=== PATIENT | male | born 1940 | race Caucasian/White ===

== ENCOUNTER → 2016-08-23 | Outpatient (CLI) | payer MEDICARE, OTHER ==
[~2016-08-23] MED LIST: ALBUTEROL0.83 MG/ML IH; ALEVE; AMARYL; AMARYL2 MG PO; AMARYL4 MG PO; AMOXICILLIN 50500 MG PO; AMOXICILLIN 8751 TAB PO; AMOXICILLIN/CLA1 TA1 PO; ASPIRIN E.C. 8181 MG PO; ATENOLOL25 MG PO; BACTRIM DS 8001 TAB PO; BENADRYL25 M2 PO; BENAZEPRIL; BENAZEPRIL20 MG PO; CARDENE 20MG CA20 MG PO; CARDI-OMEGA1000 MG PO; CEFTIN500 MG PO; CEPHALEXIN500 M1 PO; CLEOCIN HCL300 MG PO; COLACE 100100 MG/CAP PO; COUMADIN; COUMADIN 1MG1 MG/TAB PO; COUMADIN 4MG4 MG/TAB PO; COUMADIN4 MG PO; CRESTOR20 MG PO; DICLOXACILLIN250 MG PO; DIGOXIN0.25 MG PO; DILTIAZEM; DOCUSATE SODIU100 M2 PO; DOXYCYCLINE 10100 MG PO; ELIMITE TP; FISH OIL 1000MG1 CAP PO; FLEXERIL 1010 MG/TAB PO; FLOVENT 110MCG7.9 GM IH; FORTAMET1000 MG PO; FUROSEMIDE; FUROSEMIDE40 MG PO; GLUCOPHAGE1000 MG PO; GLUCOSAMINE 1000 PO; GLUCOSAMINE SU500 M1 PO; JANTOVEN4 MG PO; LASIX 40MG TABL40 MG PO; LEVAQUIN 5500 MG/TA1 PO; LEVAQUIN 750MG750 M1 PO; LEVAQUIN 750MG750 MG PO; LOPID 600M600 MG/TAB PO; LOPID600 MG PO; LORTAB 5/500 501 TAB PO; LOTENSIN10 MG PO; MAG-OX 400400 MG/TAB PO; MAREPA1200 MG PO; MELOXICAM15 MG PO; METFORMIN HCL1000 MG PO; METFORMIN1000 MG PO; METOLAZONE5 MG PO; MOTRIN 200200 MG/TAB PO; MULTI VITAMINS1 TAB PO; NEW ENERGY1 CAP PO; NORCO 325 MG-51 TAB PO; NORCO 325 MG-7.1 TAB PO; PERCOCET 325 MG1 TA2 PO; PHENERGAN W/CO120 M1 PO; PREDNISONE20 MG PO; PRILOSEC 20MG20 MG PO; PROAIR HFA0.09 MG/AC IH; PYRIDIUM 100MG100 MG PO; SUPER EPA W/BO400 MG PO; TEKTURNA; TENORMIN 2525 MG/TAB PO; TYLENOL 500MG500 MG PO; ULTRAM 50MG TAB50 MG PO; UNABLE; VENTOLIN0.09 MG IH; WARFARIN SODIUM1 MG PO; WARFARIN2 MG PO; WARFARIN4 MG PO; ZESTRIL 20MG TA20 MG PO; ZITHROMAX 250M250 MG PO; ZYLOPRIM 300MG300 MG PO; [UNRECOGNIZED DRUG - OTHER]
== END ==
LOC: WCC 09:30
DX: I87.8 Other specified disorders of veins (principal); E11.621 Type 2 diabetes mellitus with foot ulcer; L97.519 Non-pressure chronic ulcer of other part of right foot with unspecified severity
CPT/HCPCS: G0463

== ENCOUNTER 2016-09-08 13:24 | Emergency (ER) | payer MEDICARE, OTHER ==
[~2016-09-08] VITALS: Ht 188 cm; Wt 120.5 kg
[~2016-09-08 13:24] MED LIST changes: -BENADRYL25 M2 PO; -CRESTOR20 MG PO; -ELIMITE TP; -FLOVENT 110MCG7.9 GM IH; -PROAIR HFA0.09 MG/AC IH; -ZESTRIL 20MG TA20 MG PO
[2016-09-08 14:24] VITALS: TEMP 99.2
[2016-09-08] MEDS ORDERED: PROAIR HFA0.09 MG/AC IH (15:09)
[2016-09-08] MEDS ORDERED: LEVAQUIN 5500 MG/TA1 PO (15:09)
[2016-09-08 15:33] VITALS: BP 143/68; PULSE 89
== END 2016-09-08 15:34 | disposition home or self-care (01) ==
LOC: COL.ER 13:24
DX: J18.9 Pneumonia, unspecified organism (principal); E11.9 Type 2 diabetes mellitus without complications; Z87.891 Personal history of nicotine dependence; J45.909 Unspecified asthma, uncomplicated; Z79.84 Long term (current) use of oral hypoglycemic drugs; I48.91 Unspecified atrial fibrillation; Z79.01 Long term (current) use of anticoagulants

== ENCOUNTER → 2016-10-02 | Outpatient (CLI) | payer MEDICARE, OTHER ==
[~2016-10-02] MED LIST changes: +BENADRYL25 M2 PO; +CRESTOR20 MG PO; +ELIMITE TP; +FLOVENT 110MCG7.9 GM IH; +PROAIR HFA0.09 MG/AC IH; +ZESTRIL 20MG TA20 MG PO
== END ==
LOC: WCC 09-06 08:13
DX: E11.621 Type 2 diabetes mellitus with foot ulcer (principal); L97.519 Non-pressure chronic ulcer of other part of right foot with unspecified severity; I87.8 Other specified disorders of veins

== ENCOUNTER → 2016-10-10 | Outpatient (CLI) | payer MEDICARE, OTHER | LOC: COL.PUL 10-08 10:50 | DX: J45.40 Moderate persistent asthma, uncomplicated (principal) ==

== ENCOUNTER 2016-10-30 16:18 | Emergency (ER) | payer MEDICARE, OTHER ==
[~2016-10-30] VITALS: Ht 190.5 cm; Wt 127.3 kg
[~2016-10-30 16:18] MED LIST changes: -BENADRYL25 M2 PO; -CRESTOR20 MG PO; -ELIMITE TP; -FLOVENT 110MCG7.9 GM IH; -ZESTRIL 20MG TA20 MG PO
[2016-10-30 16:19] VITALS: BP 133/93; PULSE 101; TEMP 98.8
[2016-10-30] MEDS ORDERED: ELIMITE TP (17:35)
[2016-10-31] MEDS ORDERED: DOXYCYCLINE 10100 MG PO (17:39)
== END 2016-10-30 18:17 | disposition home or self-care (01) ==
LOC: COL.ER 16:18
DX: B86 Scabies (principal); E11.9 Type 2 diabetes mellitus without complications; J45.909 Unspecified asthma, uncomplicated

== ENCOUNTER 2016-10-31 16:59 | Emergency (ER) | payer MEDICARE, OTHER ==
[~2016-10-31] VITALS: Ht 190.5 cm; Wt 127.3 kg
[~2016-10-31 16:59] MED LIST changes: +ELIMITE TP
[2016-10-31 17:01] VITALS: TEMP 100
[2016-10-31] MEDS ORDERED: DOXYCYCLINE 10100 MG PO (17:39)
[2016-10-31 17:48] VITALS: BP 131/86; PULSE 112
== END 2016-10-31 17:48 | disposition home or self-care (01) ==
LOC: COL.ER 16:59
DX: H60.11 Cellulitis of right external ear (principal); T78.40XA Allergy, unspecified, initial encounter; S00.461A Insect bite (nonvenomous) of right ear, initial encounter; W57.XXXA Bitten or stung by nonvenomous insect and other nonvenomous arthropods, initial encounter; E11.9 Type 2 diabetes mellitus without complications; I10 Essential (primary) hypertension; Z79.01 Long term (current) use of anticoagulants; Z79.84 Long term (current) use of oral hypoglycemic drugs; I48.91 Unspecified atrial fibrillation

== ENCOUNTER → 2016-11-13 | Outpatient (CLI) | payer MEDICARE, OTHER ==
[~2016-11-13] MED LIST changes: +BENADRYL25 M2 PO; +CRESTOR20 MG PO; +FLOVENT 110MCG7.9 GM IH; +ZESTRIL 20MG TA20 MG PO
== END ==
LOC: WCC
DX: E11.621 Type 2 diabetes mellitus with foot ulcer (principal); L97.519 Non-pressure chronic ulcer of other part of right foot with unspecified severity

== ENCOUNTER 2016-12-02 09:13 | Inpatient (IN) | payer MEDICARE ==
[2016-12-02] VITALS (567 sets, daily range): BP systolic 100–148; BP diastolic 50–93; PULSE 92–161; TEMP 96.9–103.5; O2SAT 75–99
[~2016-12-02] VITALS: Ht 188 cm; Wt 119.7 kg
[~2016-12-02 09:13] MED LIST changes: -BENADRYL25 M2 PO; -CRESTOR20 MG PO; -FLOVENT 110MCG7.9 GM IH; -ZESTRIL 20MG TA20 MG PO
[2016-12-02 10:04] LABS: ARTERIAL BLD GAS O2 SATURATION 87.8 % (92-100); ARTERIAL BLD GAS TCO2 CT 22.5; ARTERIAL BLOOD GAS BASE EXCESS -3.3 (-2-2); ARTERIAL BLOOD GAS HCO3 21.4 meq/L (22-26); ARTERIAL BLOOD GAS PHT 7.38 C (7.35-7.45); ARTERIAL BLOOD GAS PO2 50.8 mmHg (80-100); ARTERIAL BLOOD GAS PO2T 50.8 (80-100); ARTERIAL BLOOD GAS pH 7.38 (7.35-7.45); ATS? YES; OXYHEMOGLOBIN 86.5 %
[2016-12-02 11:05] LABS: PARTIAL THROMBOPLASTIN TIME 93.9 SECONDS (26.0-37.0)
[2016-12-02 11:14] LABS: HEMATOCRIT 42.3 % (42.0-52.0); HEMOGLOBIN 14.4 g/dl (13.5-18.0); MEAN CELL VOLUME 92 fl (80.0-100.0); MEAN CORPUSCULAR HEMOGLOBIN 31 pg (27.0-31.0); MEAN CORPUSCULAR HGB CONC 34 g/dl (33.0-37.0); MEAN PLATELET VOLUME 9.9 fl (7.4-10.4); PLATELET COUNT 187 K/mm3 (130-400); RED BLOOD COUNT 4.58 M/mm3 (4.20-5.60); REDCELL DISTRIBUTION WIDTH-CV 14.2 % (11.5-14.5); WHITE BLOOD COUNT 16.1 K/mm3 (4.8-10.8)
[2016-12-02 11:18] LABS: ADJUSTED CALCIUM 10.5 mg/dL (8.4-10.2); ALBUMIN 4.1 gm/dL (3.5-5.0); BILIRUBIN,TOTAL 1.4 mg/dL (0.0-1.0); CALCIUM 10.6 mg/dL (8.4-10.2); CREATININE, serum 1.13 mg/dL (0.66-1.25); MAGNESIUM 2.3 mg/dL (1.6-2.3); POTASSIUM 4.2 mmol/L (3.4-5.0); TOTAL PROTEIN 7.4 gm/dL (6.4-8.2)
[2016-12-02 11:20] LABS: ADD PATHOLOGY DIFF REVIEW NO
[2016-12-02 11:30] LABS: TROPONIN-I 0.114 ng/mL (0.000-0.034)
[2016-12-02 11:47] LABS: INR 14.6 (0.8-3.0); PROTHROMBIN TIME 175.8 SECONDS (9.7-12.8)
[2016-12-02 11:50] LABS: C-REACTIVE PROTEIN 38.1 mg/dL (0.0-0.9)
[2016-12-02 11:56] LABS: ANISOCYTOSIS 1+; BAND 42 % (0-10); NEUTROPHILS 48 % (42.0-75.2); PLATELET ESTIMATE NORMAL (NORMAL); TOTAL CELLS COUNTED 100
[2016-12-02 13:29] LABS: PH 5 (5-8); SQUAMOUS EPITHELIAL 0-2 /hpf; URINE APPEARANCE Hazy; URINE BACTERIA None Seen /hpf; URINE BILIRUBIN Negative (NEGATIVE); URINE BLOOD 3+ (NEGATIVE); URINE COLOR Yellow; URINE GLUCOSE 3+ (NEGATIVE); URINE KETONE Trace (NEGATIVE); URINE UROBILINOGEN Negative (NEGATIVE)
[2016-12-02] MEDS ORDERED: BENADRYL25 M2 PO (15:51)
[2016-12-02] MEDS ORDERED: FLOVENT 110MCG7.9 GM IH (15:52)
[2016-12-02] MEDS ORDERED: GLUCOSAMINE 1000 PO (15:52)
[2016-12-02] MEDS ORDERED: ZESTRIL 20MG TA20 MG PO (15:53)
[2016-12-02] MEDS ORDERED: CRESTOR20 MG PO (15:54)
[2016-12-02 17:48] LABS: ARTERIAL BLD GAS O2 SATURATION 95.1 % (92-100); ARTERIAL BLD GAS TCO2 CT 26.1; ARTERIAL BLOOD GAS BASE EXCESS 0.4 (-2-2); ARTERIAL BLOOD GAS HCO3 24.9 meq/L (22-26); ARTERIAL BLOOD GAS PHT 7.42 C (7.35-7.45); ARTERIAL BLOOD GAS PO2 73.1 mmHg (80-100); ARTERIAL BLOOD GAS PO2T 73.1 (80-100); ARTERIAL BLOOD GAS pH 7.42 (7.35-7.45); OXYHEMOGLOBIN 94.1 %
[2016-12-02 17:50] LABS: ALLEN TEST YES; ALLENS TEST RESULT PASS; ATS? YES
[2016-12-02 18:58] LABS: INR 17.1 (0.8-3.0); PROTHROMBIN TIME 207.4 SECONDS (9.7-12.8)
[2016-12-03] VITALS (1371 sets, daily range): BP systolic 95–134; BP diastolic 64–96; PULSE 90–121; TEMP 97.5–98.3; O2SAT 77–100
[2016-12-03 00:50] LABS: VENOUS BLOOD GAS BE 1.2 (-4-4); VENOUS BLOOD GAS SAO2 68.7 % (60-80)
[2016-12-03 00:51] LABS: VENOUS BLOOD GAS SITE CENTRAL LINE
[2016-12-03 01:07] LABS: INR 2.8 (0.8-3.0); PROTHROMBIN TIME 32.2 SECONDS (9.7-12.8)
[2016-12-03 02:37] LABS: ARTERIAL BLD GAS O2 SATURATION 97.1 % (92-100); ARTERIAL BLD GAS TCO2 CT 27.2; ARTERIAL BLOOD GAS BASE EXCESS 2.1 (-2-2); ARTERIAL BLOOD GAS PHT 7.45 C (7.35-7.45); ARTERIAL BLOOD GAS PO2 89.2 mmHg (80-100); ARTERIAL BLOOD GAS PO2T 89.2 (80-100); ARTERIAL BLOOD GAS pH 7.45 (7.35-7.45); OXYHEMOGLOBIN 96.3 %
[2016-12-03 02:38] LABS: ALLEN TEST YES; ALLENS TEST RESULT PASS; ATS? YES
[2016-12-03 04:30] LABS: VENOUS BLOOD GAS BE 1.2 (-4-4); VENOUS BLOOD GAS SAO2 64.4 % (60-80)
[2016-12-03 04:35] LABS: VENOUS BLOOD GAS SITE CENTRAL LINE
[2016-12-03 04:44] LABS: MEAN CELL VOLUME 92 fl (80.0-100.0); MEAN CORPUSCULAR HGB CONC 34 g/dl (33.0-37.0); MEAN PLATELET VOLUME 10.1 fl (7.4-10.4); PLATELET COUNT 173 K/mm3 (130-400); RED BLOOD COUNT 3.67 M/mm3 (4.20-5.60); REDCELL DISTRIBUTION WIDTH-CV 14.5 % (11.5-14.5); WHITE BLOOD COUNT 10.5 K/mm3 (4.8-10.8)
[2016-12-03 04:46] LABS: ADD PATHOLOGY DIFF REVIEW NO; HEMATOCRIT 33.9 % (42.0-52.0); HEMOGLOBIN 11.4 g/dl (13.5-18.0); MEAN CORPUSCULAR HEMOGLOBIN 31 pg (27.0-31.0)
[2016-12-03 04:49] LABS: INR 1.9 (0.8-3.0)
[2016-12-03 04:58] LABS: ADJUSTED CALCIUM 10.4 mg/dL (8.4-10.2); ALBUMIN 3.3 gm/dL (3.5-5.0); BILIRUBIN,TOTAL 1.4 mg/dL (0.0-1.0); CALCIUM 9.8 mg/dL (8.4-10.2); CREATININE, serum 1.36 mg/dL (0.66-1.25); POTASSIUM 3.5 mmol/L (3.4-5.0); TOTAL PROTEIN 6.4 gm/dL (6.4-8.2)
[2016-12-03 05:40] LABS: BAND 29 % (0-10); NEUTROPHILS 58 % (42.0-75.2); TOTAL CELLS COUNTED 100
[2016-12-04] VITALS (1276 sets, daily range): BP systolic 103–122; BP diastolic 64–86; PULSE 80–105; TEMP 97–98; O2SAT 83–100
[2016-12-04 05:48] LABS: BASO % 0.2 % (0.0-2.0); EOS % 0.1 % (0-4.0); GRAN # 10.6 (1.4-6.5); GRAN % 84.2 % (42.2-75.2); LYMPH # 0.7 (1.2-3.4); LYMPH % 5.5 % (20.0-51.0); MEAN CELL VOLUME 95 fl (80.0-100.0); MEAN CORPUSCULAR HGB CONC 32 g/dl (33.0-37.0); MEAN PLATELET VOLUME 10.1 fl (7.4-10.4); MONO # 1.2 (0.1-0.6); MONO % 9.4 % (1.7-9.3); PLATELET COUNT 174 K/mm3 (130-400); RED BLOOD COUNT 3.57 M/mm3 (4.20-5.60); REDCELL DISTRIBUTION WIDTH-CV 14.7 % (11.5-14.5); WHITE BLOOD COUNT 12.5 K/mm3 (4.8-10.8)
[2016-12-04 05:57] LABS: ADJUSTED CALCIUM 10.5 mg/dL (8.4-10.2); ALBUMIN 2.8 gm/dL (3.5-5.0); BILIRUBIN,TOTAL 0.9 mg/dL (0.0-1.0); CALCIUM 9.5 mg/dL (8.4-10.2); CREATININE, serum 1.57 mg/dL (0.66-1.25); POTASSIUM 3.6 mmol/L (3.4-5.0); TOTAL PROTEIN 5.9 gm/dL (6.4-8.2)
[2016-12-04 06:03] LABS: HEMATOCRIT 33.9 % (42.0-52.0); HEMOGLOBIN 10.9 g/dl (13.5-18.0); MEAN CORPUSCULAR HEMOGLOBIN 31 pg (27.0-31.0)
[2016-12-04 06:09] LABS: INR 1.2 (0.8-3.0); PROTHROMBIN TIME 13.9 SECONDS (9.7-12.8)
[2016-12-05] VITALS (198 sets, daily range): BP systolic 111–132; BP diastolic 61–82; PULSE 67–113; TEMP 97.3–98.7; O2SAT 69–98
[2016-12-05 06:50] LABS: INR 1.3 (0.8-3.0); PROTHROMBIN TIME 14.3 SECONDS (9.7-12.8)
[2016-12-05 06:55] LABS: ADJUSTED CALCIUM 10.2 mg/dL (8.4-10.2); ALBUMIN 2.7 gm/dL (3.5-5.0); BILIRUBIN,TOTAL 0.9 mg/dL (0.0-1.0); CALCIUM 9.2 mg/dL (8.4-10.2); CREATININE, serum 2.13 mg/dL (0.66-1.25); POTASSIUM 3.8 mmol/L (3.4-5.0); TOTAL PROTEIN 5.7 gm/dL (6.4-8.2)
[2016-12-05 07:04] LABS: VANCOMYCIN TROUGH 27.23 ug/mL (7.00-20.00)
[2016-12-05 07:05] LABS: MEAN CELL VOLUME 95 fl (80.0-100.0); MEAN CORPUSCULAR HGB CONC 32 g/dl (33.0-37.0); MEAN PLATELET VOLUME 10.8 fl (7.4-10.4); PLATELET COUNT 186 K/mm3 (130-400); RED BLOOD COUNT 3.46 M/mm3 (4.20-5.60); REDCELL DISTRIBUTION WIDTH-CV 14.9 % (11.5-14.5); WHITE BLOOD COUNT 11.3 K/mm3 (4.8-10.8)
[2016-12-05 07:14] LABS: HEMATOCRIT 32.7 % (42.0-52.0); HEMOGLOBIN 10.6 g/dl (13.5-18.0); MEAN CORPUSCULAR HEMOGLOBIN 31 pg (27.0-31.0)
[2016-12-05 07:15] LABS: ADD PATHOLOGY DIFF REVIEW NO
[2016-12-05 12:16] LABS: ANISOCYTOSIS 1+; BAND 21 % (0-10); EOSINOPHIL 1 % (0-4); NEUTROPHILS 62 % (42.0-75.2); PLATELET ESTIMATE NORMAL (NORMAL); TOTAL CELLS COUNTED 100
[2016-12-06 04:13] VITALS: BP 136/66; PULSE 63; TEMP 98.2
[2016-12-06 07:29] LABS: MEAN CELL VOLUME 94 fl (80.0-100.0); MEAN CORPUSCULAR HGB CONC 33 g/dl (33.0-37.0); MEAN PLATELET VOLUME 10.2 fl (7.4-10.4); PLATELET COUNT 209 K/mm3 (130-400); RED BLOOD COUNT 3.47 M/mm3 (4.20-5.60); REDCELL DISTRIBUTION WIDTH-CV 14.7 % (11.5-14.5); WHITE BLOOD COUNT 10.6 K/mm3 (4.8-10.8)
[2016-12-06 07:37] LABS: CALCIUM 9.1 mg/dL (8.4-10.2); CREATININE, serum 1.59 mg/dL (0.66-1.25); MAGNESIUM 2.9 mg/dL (1.6-2.3); PHOSPHOROUS 2.3 mg/dL (2.5-4.5); POTASSIUM 3.9 mmol/L (3.4-5.0)
[2016-12-06 07:43] LABS: HEMATOCRIT 32.6 % (42.0-52.0); HEMOGLOBIN 10.7 g/dl (13.5-18.0); MEAN CORPUSCULAR HEMOGLOBIN 31 pg (27.0-31.0)
[2016-12-06 07:44] LABS: ADD PATHOLOGY DIFF REVIEW NO
[2016-12-06 07:56] VITALS: BP 128/61; PULSE 77; TEMP 9.7
[2016-12-06 12:05] VITALS: BP 137/59; PULSE 70
[2016-12-06 12:08] LABS: INR 1.8 (0.8-3.0); PROTHROMBIN TIME 20.2 SECONDS (9.7-12.8)
[2016-12-06 14:57] LABS: BAND 17 % (0-10); NEUTROPHILS 65 % (42.0-75.2); TOTAL CELLS COUNTED 100
[2016-12-06 14:58] LABS: PLATELET ESTIMATE NORMAL (NORMAL)
[2016-12-06 15:35] VITALS: BP 129/89; PULSE 87; TEMP 98.4
[2016-12-06 19:37] VITALS: BP 153/61; PULSE 65; TEMP 97.6
[2016-12-07] VITALS (7 sets, daily range): BP systolic 127–160; BP diastolic 51–84; PULSE 66–103; TEMP 97.5–979
[2016-12-07 07:17] LABS: MEAN CELL VOLUME 94 fl (80.0-100.0); MEAN CORPUSCULAR HGB CONC 33 g/dl (33.0-37.0); MEAN PLATELET VOLUME 10.3 fl (7.4-10.4); PLATELET COUNT 229 K/mm3 (130-400); RED BLOOD COUNT 3.51 M/mm3 (4.20-5.60); REDCELL DISTRIBUTION WIDTH-CV 14.7 % (11.5-14.5); WHITE BLOOD COUNT 10.9 K/mm3 (4.8-10.8)
[2016-12-07 07:18] LABS: INR 1.9 (0.8-3.0); PROTHROMBIN TIME 21.6 SECONDS (9.7-12.8)
[2016-12-07 07:33] LABS: CALCIUM 9.8 mg/dL (8.4-10.2); CREATININE, serum 1.21 mg/dL (0.66-1.25); MAGNESIUM 2.6 mg/dL (1.6-2.3); PHOSPHOROUS 2.6 mg/dL (2.5-4.5); POTASSIUM 4.1 mmol/L (3.4-5.0)
[2016-12-07 07:46] LABS: HEMOGLOBIN 10.8 g/dl (13.5-18.0); MEAN CORPUSCULAR HEMOGLOBIN 31 pg (27.0-31.0)
[2016-12-07 09:33] LABS: ADD PATHOLOGY DIFF REVIEW NO
[2016-12-07 09:39] LABS: BAND 27 % (0-10); METAMYELOCYTE 2 % (0-0); MYELOCYTE 1 % (0-0); NEUTROPHILS 52 % (42.0-75.2); PLATELET ESTIMATE NORMAL (NORMAL); TOTAL CELLS COUNTED 100
[2016-12-07 09:40] LABS: ANISOCYTOSIS 1+
[2016-12-08 04:05] VITALS: BP 146/84; PULSE 81; TEMP 97.6
[2016-12-08 06:56] LABS: MEAN CELL VOLUME 93 fl (80.0-100.0); MEAN CORPUSCULAR HGB CONC 32 g/dl (33.0-37.0); PLATELET COUNT 276 K/mm3 (130-400); REDCELL DISTRIBUTION WIDTH-CV 14.6 % (11.5-14.5)
[2016-12-08 07:01] LABS: INR 2.7 (0.8-3.0); PROTHROMBIN TIME 30.4 SECONDS (9.7-12.8)
[2016-12-08 07:04] LABS: ADD PATHOLOGY DIFF REVIEW NO; HEMATOCRIT 33.6 % (42.0-52.0); HEMOGLOBIN 10.9 g/dl (13.5-18.0); MEAN CORPUSCULAR HEMOGLOBIN 30 pg (27.0-31.0)
[2016-12-08 07:13] LABS: CALCIUM 9.9 mg/dL (8.4-10.2); CREATININE, serum 1.06 mg/dL (0.66-1.25); POTASSIUM 4.2 mmol/L (3.4-5.0)
[2016-12-08 07:46] VITALS: BP 157/85; PULSE 109; TEMP 98.5
[2016-12-08 10:53] LABS: ANISOCYTOSIS 1+; BAND 24 % (0-10); METAMYELOCYTE 2 % (0-0); MYELOCYTE 4 % (0-0); NEUTROPHILS 55 % (42.0-75.2); PLATELET ESTIMATE NORMAL (NORMAL); POLYCHROMASIA 1+; TOTAL CELLS COUNTED 100
[2016-12-08 12:56] VITALS: BP 126/53; PULSE 110; TEMP 98.8
[2016-12-08 16:24] VITALS: BP 125/60; PULSE 113; TEMP 98.8
[2016-12-08 20:16] VITALS: BP 101/63; PULSE 117; TEMP 98.3
[2016-12-08 23:06] VITALS: BP 95/64; PULSE 120; TEMP 98.7
[2016-12-09] VITALS (370 sets, daily range): BP systolic 93–118; BP diastolic 47–61; PULSE 89–120; TEMP 97.4–99; O2SAT 42–100
[2016-12-09 07:51] LABS: MEAN CELL VOLUME 96 fl (80.0-100.0); MEAN CORPUSCULAR HGB CONC 33 g/dl (33.0-37.0); MEAN PLATELET VOLUME 10.6 fl (7.4-10.4); RED BLOOD COUNT 2.55 M/mm3 (4.20-5.60); REDCELL DISTRIBUTION WIDTH-CV 14.7 % (11.5-14.5)
[2016-12-09 07:55] LABS: WHITE BLOOD COUNT 27.2 K/mm3 (4.8-10.8)
[2016-12-09 07:56] LABS: HEMATOCRIT 24.5 % (42.0-52.0); MEAN CORPUSCULAR HEMOGLOBIN 31 pg (27.0-31.0); PLATELET COUNT 414 K/mm3 (130-400)
[2016-12-09 08:04] LABS: CALCIUM 9.8 mg/dL (8.4-10.2); CREATININE, serum 1.67 mg/dL (0.66-1.25); INR 3.7 (0.8-3.0); POTASSIUM 4.8 mmol/L (3.4-5.0); PROTHROMBIN TIME 43.2 SECONDS (9.7-12.8)
[2016-12-09 11:49] LABS: BASOPHIL 1 % (0-2); EOSINOPHIL 2 % (0-4); METAMYELOCYTE 5 % (0-0); MYELOCYTE 3 % (0-0); NEUTROPHILS 60 % (42.0-75.2); PLATELET ESTIMATE INCREASED (NORMAL)
[2016-12-09 11:53] LABS: ANISOCYTOSIS 1+; OVALOCYTES 1+; POLYCHROMASIA 2+; TOXIC GRANULATION PRESENT
[2016-12-09 11:55] LABS: ADD PATHOLOGY DIFF REVIEW YES; BAND 18 % (0-10)
[2016-12-09 12:08] LABS: TOTAL CELLS COUNTED 200
[2016-12-09 15:28] LABS: ARTERIAL BLD GAS O2 SATURATION 94.7 % (92-100); ARTERIAL BLD GAS TCO2 CT 27.6; ARTERIAL BLOOD GAS HCO3 26.5 meq/L (22-26); ARTERIAL BLOOD GAS PHT 7.49 C (7.35-7.45); ARTERIAL BLOOD GAS PO2 78.3 mmHg (80-100); ARTERIAL BLOOD GAS PO2T 78.3 (80-100); ARTERIAL BLOOD GAS pH 7.49 (7.35-7.45); OXYHEMOGLOBIN 93.6 %
[2016-12-09 15:43] LABS: ALLEN TEST NO; ATS? YES
[2016-12-09 16:05] LABS: ADJUSTED CALCIUM 10.5 mg/dL (8.4-10.2); ALBUMIN 2.7 gm/dL (3.5-5.0); BILIRUBIN,TOTAL 0.6 mg/dL (0.0-1.0); CALCIUM 9.5 mg/dL (8.4-10.2); CREATININE, serum 2.33 mg/dL (0.66-1.25); POTASSIUM 5.1 mmol/L (3.4-5.0); TOTAL PROTEIN 6.1 gm/dL (6.4-8.2)
[2016-12-10] VITALS (214 sets, daily range): BP systolic 100; BP diastolic 51–54; PULSE 80–82; TEMP 98–98.1; O2SAT 46–100
[2016-12-10 05:02] LABS: ARTERIAL BLD GAS O2 SATURATION 18.3 % (92-100); ARTERIAL BLD GAS TCO2 CT 24.8; ARTERIAL BLOOD GAS HCO3 22.7 meq/L (22-26); OXYHEMOGLOBIN 17.7 %
[2016-12-10 05:04] LABS: ARTERIAL BLOOD GAS PO2 19.2 mmHg (80-100); ARTERIAL BLOOD GAS pH 7.14 (7.35-7.45)
[2016-12-10 05:05] LABS: ALLEN TEST NO; ATS? NO
[2016-12-10 08:19] LABS: PATHOLOGY DIFF REVIEW OK
== END 2016-12-10 08:30 | disposition expired | DRG 853 ==
LOC: COL.ER 09:13 → ICU 12:20 → MEDICAL 12-05 13:40 → IMCU 12-09 16:10 → ICU 12-10 04:16
PROVIDERS: Emergency Medicine; Family Medicine; Internal Medicine; Internal Medicine Cardiovascular Disease; Internal Medicine Pulmonary Disease; Nurse Practitioner Family
PROC: 0JBQ0ZZ Excision of Right Foot Subcutaneous Tissue and Fascia, Open Approach (ICD-10-PCS; principal; 2016-12-02)
PROC: 0BH17EZ Insertion of Endotracheal Airway into Trachea, Via Natural or Artificial Opening (ICD-10-PCS; 2016-12-10)
DX: A40.0 Sepsis due to streptococcus, group A (principal); J96.01 Acute respiratory failure with hypoxia; I21.4 Non-ST elevation (NSTEMI) myocardial infarction; E43 Unspecified severe protein-calorie malnutrition; E87.1 Hypo-osmolality and hyponatremia; I50.22 Chronic systolic (congestive) heart failure; L97.419 Non-pressure chronic ulcer of right heel and midfoot with unspecified severity; E11.52 Type 2 diabetes mellitus with diabetic peripheral angiopathy with gangrene; L03.115 Cellulitis of right lower limb; N17.9 Acute kidney failure, unspecified; E11.621 Type 2 diabetes mellitus with foot ulcer; R65.20 Severe sepsis without septic shock; I11.0 Hypertensive heart disease with heart failure; I48.91 Unspecified atrial fibrillation; E83.52 Hypercalcemia; E11.65 Type 2 diabetes mellitus with hyperglycemia; E11.628 Type 2 diabetes mellitus with other skin complications; B95.0 Streptococcus, group A, as the cause of diseases classified elsewhere; E11.42 Type 2 diabetes mellitus with diabetic polyneuropathy
CPT/HCPCS: 99223-AI; 99232-AI; 99233-AI; C1751; J0171; J0282; J0456; J0461; J0696; J1815; J1940; J2250; J2543; J3370; J7040; J7050; J7060